=== PATIENT | female | born 1935 | race Caucasian/White ===

== ENCOUNTER 2016-12-16 08:05 | Observation (INO) ==
[2016-12-16] MEDS ORDERED: IOPAMIDOL 100 ML BOTTLE IV ONE (08:06)
[2016-12-16] MEDS ORDERED: NITROGLYCERIN 0.4 MG TAB.SUBL SL PRN (08:11)
[2016-12-16] MEDS ORDERED: ASPIRIN 81 MG TAB.CHEW CHEWED ONE (08:12)
[2016-12-16] MEDS ORDERED: PHENobarb/HYOSCY/ATROPINE/SCOP 1 DOSE BOTTLE PO ONE (08:27)
[2016-12-16 08:42] LABS: Basophils # (Auto) 0 K/mcL (0.0-0.3); Basophils % (Auto) 0.3 % (0.0-2.0); Eosinophils # (Auto) 0.1 K/mcL (0.0-0.7); Eosinophils % (Auto) 1.1 % (0.0-7.0); Granulocytes % (Auto) 84.3 % (38.0-78.0); Lymphocytes # (Auto) 0.6 K/mcL (1.5-4.8); Mean Cell Volume 92.8 fL (80.0-100.0); Mean Corpuscular Hemoglobin 31.5 pg (26.0-34.0); Monocytes # (Auto) 0.6 K/mcL (0.1-0.9); Monocytes % (Auto) 7.3 % (1.0-12.0); Platelet Count 205 K/mcL (140-440); RBC 3.43 M/mcL (4.00-5.20); Red Cell Distribution Width 14.5 % (11.5-14.5)
--- NOTE | 2016-12-16 08:51 | XRay Report ---
HISTORY: Reason for Exam:Chest Pain FINDINGS: The lungs are clear and well expanded. There is no congestive heart failure or pleural effusion. The heart size is normal. There is a well-positioned dual-chamber pacemaker. The patient has a couple old healed posterior right-sided rib fractures. The right acromioclavicular joint is widened. IMPRESSION: No evidence of pneumonia or congestive heart failure Interpreted and Authenticated by: Yobani Leon 12/16/16
[2016-12-16 08:57] LABS: Amylase 69 U/L (28-100); Lipase 45 U/L (7-60)
--- NOTE | 2016-12-16 08:57 | Emergency Department Note ---
SOB HPI - General Chief Complaint: Shortness of Breath/Dyspnea Stated Complaint: Shortness of breath. Cough, Swelling to legs Source: patient Mode of arrival: wheelchair Limitations: no limitations - History of Present Illness Patient presents with , ongoing concern for shortness of breath with upper abdominal discomfort. Patient states that she does not feel well, generally weak. Persistent epigastric pain, gnawing. States it feels like she has an ulcer. Notes in the setting of copious loose stool dark and black, tarry by her report. Recently admitted after [facility] for intercranial bleeding on and coagulation to [facility]. Spent several days at [facility], relates much of the care. States that she had a cough that well until the last day that was unaddressed, eventually diagnosed with pneumonia. Patient has completed a course of antibiotics, not sure which one. Patient's cough has been less productive and improving and less labored breathing. No fevers or chills, no urinary symptoms. Crampy abdominal pain in addition to the epigastric pain which is constant. No emesis. Patient otherwise denies chest heaviness, jaw and neck shoulder or back pain. She denies near-syncope or diaphoresis. No history of cardiac disease. - Related Data Home Medications Medication Instructions Recorded Confirmed traMADol [Ultram] 50 mg PO BID PRN tab 10/03/15 10/13/16 Methotrexate Sodium [Methotrexate] 25 mg IJ 11/26/16 12/03/16 Vit A,C & E/Lutein/Minerals 11/26/16 12/03/16 [Ocuvite] Warfarin [Coumadin] 2 mg PO DAILY 11/26/16 12/03/16 amlodipine 5 mg tablet 5 mg PO QDAY 12/03/16 12/03/16 carvedilol 12.5 mg tablet 12.5 mg PO BID 12/03/16 12/03/16 fluticasone 50 mcg/actuation nasal 100 mcg INTRANASAL QDAY PRN 12/03/16 12/03/16 spray,suspension Previous Rx's Medication Instructions Recorded cyanocobalamin (vit B-12) 1,000 1,000 mcg PO QDAY #1 tab 04/09/15 mcg tablet INR machine #1 each 09/27/15 simvastatin 10 mg tablet 10 mg PO QPM #90 tab 12/18/15 folic acid 1 mg tablet 3 mg PO QDAY #270 tab 05/12/16 Acetaminophen W/Codeine #3 1 tab PO Q4-6HP PRN #15 tab 11/26/16 [Tylenol #3] Albuterol Sulfate [Proventil Hfa] 6.7 gm IH Q4HP PRN #1 hfa.aer.ad 11/26/16 losartan 100 mg tablet 50 mg PO QDAY #1 tab 12/03/16 prednisone 20 mg tablet 20 mg PO QDAY #5 tab 12/03/16 furosemide 20 mg tablet 20 mg PO QDAY #90 tab 12/04/16 potassium chloride ER 10 mEq 10 meq PO QDAY #90 cap 12/04/16 capsule,extended release Allergies Allergy/AdvReac Type Severity Reaction Status Date / Time hydrocodone [HYDROCODONE] AdvReac Unknown Anxiety Verified 12/16/16 08:10 Oxycodone AdvReac Anxiety Verified 12/16/16 08:10 Review of Systems All systems ED: reviewed and negative except as stated. Constitutional: Denies: fever, chills Cardiovascular: Denies: chest pain, palpitations Respiratory: Reports: cough, shortness of breath. Denies: phlegm, wheezes Gastrointestinal: Reports: abdominal pain, diarrhea. Denies: nausea Genitourinary: Denies: urgency Past Medical History - Past Medical History Attestation: Yes: The following information was validated with the patient. 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 Denies: cancer, myocardial infarction Surgical history ED: Reports: appendectomy, cataract, hysterectomy, orthopedic, other (Amputation left second toe, rotator cuff, bilateral feet), tonsillectomy Psychiatric history: Reports: anxiety. Denies: depression Family history: Reports: non-contributory - Social History smoking status: Former smoker Alcohol use: Reports: Occasionally, Recent Drug use: Reports: none Physical Exam - General Limitations: no limitations General appearance: alert, anxious, other (Slightly slowed mentation,defers history points to ) - Head Head exam: atraumatic, normocephalic - Eye Eye exam: Present: normal appearance, PERRL - ENT ENT exam: normal exam, mucous membranes moist - Neck Neck exam: Present: normal inspection. Absent: lymphadenopathy - Chest Chest inspection: Present: normal inspection, other (pacemaker) - Respiratory Respiratory exam: Present: normal lung sounds bilaterally. Absent: respiratory distress, wheezes, accessory muscle use - Cardiovascular Cardiovascular exam: Present: regular rate, normal rhythm - Abdominal Exam Abdominal exam: Present: soft, tenderness. Absent: distention, guarding, rebound, rigidity - Extremities Exam Extremities exam: Present: normal inspection - Back Exam Back exam: Present: normal inspection - Neurological Exam Neurological exam: Present: alert, oriented X3 - Psychiatric Psychiatric exam: Present: normal affect, flat affect - Skin Skin exam: Present: warm, dry Course Vital Signs Temperature 97.0 F 12/16/16 08:06 Pulse Rate 81 12/16/16 08:06 Respiratory Rate 18 12/16/16 08:06 Pulse Oximetry (%) 100 12/16/16 08:06 Temperature 97.0 F 12/16/16 08:06 Pulse Rate 75 12/16/16 08:31 Respiratory Rate 24 H 12/16/16 08:31 Blood Pressure 106/72 12/16/16 08:31 Pulse Oximetry (%) 100 12/16/16 08:31 Shortness of Breath/Dyspnea - Lab Data Lab results reviewed: Yes I reviewed the patient's lab results. Result diagrams: 12/16/16 08:20 12/16/16 08:20 Lab Results 12/16/16 12/16/16 Range/Units 08:20 08:21 WBC 8.7 (4.5-11.0) K/mcL RBC 3.43 L (4.00-5.20) M/mcL Hgb 10.8 L (12.0-15.0) g/dL Hct 31.8 L (36.0-48.0) % MCV 92.8 (80.0-100.0) fL MCH 31.5 (26.0-34.0) pg MCHC 34.0 (31.0-36.0) g/dL RDW 14.5 (11.5-14.5) % Plt Count 205 (140-440) K/mcL MPV 8.7 (7.4-10.4) fL Gran % 84.3 H (38.0-78.0) % Lymph % (Auto) 7.0 L (15.5-49.0) % [place] % (Auto) 7.3 (1.0-12.0) % Eos % (Auto) 1.1 (0.0-7.0) % Baso % (Auto) 0.3 (0.0-2.0) % Gran # 7.3 (1.8-8.0) K/mcL Lymph # (Auto) 0.6 L (1.5-4.8) K/mcL [place] # (Auto) 0.6 (0.1-0.9) K/mcL Eos # (Auto) 0.1 (0.0-0.7) K/mcL Baso # (Auto) 0 (0.0-0.3) K/mcL PT 24.7 H (11.9-14.5) sec INR 2.1 H (0.9-1.1) - Radiology Data Radiology results reviewed: Yes I reviewed the patient's radiology results. no acute finding, over read pending Disposition Pt seen by CERAMIC MOLD DESIGNER/PA only: No Clinical Impression: Epigastric pain, Weakness, Melena Summary: initial workup including cardiac enzymes pending; patient transitioning to Dr. Aparicio, see his separate note for interpretation of labs and final diagnosis and disposition Referrals: Anand Rico MD [Primary Care Provider] -
[2016-12-16 09:13] LABS: Creatine Kinase MB 4.3 ng/ml (0-2.9); Myoglobin 37 ng/ml (25-58)
[2016-12-16 09:24] LABS: ALT/SGPT 62 U/l (0-40); Albumin 2.6 gm/dL (3.2-5.2); Alkaline Phosphatase 608 U/L (39-117); Blood Urea Nitrogen 20 mg/dl (8-23); Creatine Kinase 43 IU/L (24-170)
[2016-12-16] MEDS ORDERED: PANTOPRAZOLE 40 MG VIAL IV ONE ×2 (09:58→10:32)
[2016-12-16 10:28] LABS: Appearance,Urine HAZY; Bacteria,Urine MANY /hpf (0); Bilirubin,Urine NEG (NEG); Color,Urine YELLOW; Glucose,Urine (UA) NEGATIVE (NEG); Leukocyte Esterase,Urine 500 /uL (NEG); Mucus,Urine FEW /hpf (0); Nitrate,Urine NEG (NEG); Protein,Urine NEG (NEG); Specific Gravity,Urine 1.009 (1.000-1.035); Urine Blood 0.03 mg/dL (<0.03); Urine Hyaline Cast 1 /lpf (0-2); Urine RBC 5 /hpf (0-1); Urine Squamous Epithelial Cell < 1 /hpf (0-4); Urine WBC > 182 /hpf (0-4); Urobilinogen,Urine NEG (NEG)
[2016-12-16 11:02] LABS: C-Reactive Protein 11.9 mg/dl (0.0-0.8)
[2016-12-16] MEDS ORDERED: cefTRIAXone 1 GM in DEXTROSE 5% IN WATER 50 ML IV ONE (11:32)
--- NOTE | 2016-12-16 11:46 | Ultrasound Report ---
History: Abdominal pain with elevated liver enzymes Findings: The liver contains multiple complex cystic lesions. The have irregular contours and thickened deal. Largest measures 5.9 cm. There is involvement throughout both left and right lobe. The liver parenchyma itself is also very heterogeneous. These are new finding since a prior CT done on 09/14/08. Right lobe is 15.3 cm in length which is upper limits of normal. The pancreas is incompletely visualized but the visualized portion appears normal. The gallbladder is normal with no stones. There is a focal area of thickened gallbladder wall measuring up to 3.3 mm. The patient was nontender wall scanning over the gallbladder. The common bile duct is 5.8 mm in diameter which is within normal limits. No ascites is present in the upper abdomen. Impression: Multiple complex cystic masses throughout the liver. This could be due to necrotic tumors. Infection with multiple liver abscess is another consideration. Upper abdominal CT with IV contrast is recommended. Dr. Aparicio was called with the results Interpreted and Authenticated by: Yobani Leon 12/16/16
--- NOTE | 2016-12-16 12:35 | Emergency Department Note ---
SOB HPI - General Chief Complaint: Shortness of Breath/Dyspnea Stated Complaint: Shortness of breath. Cough, Swelling to legs Time Seen by Provider: 12/16/16 09:04 Source: patient Mode of arrival: wheelchair Limitations: no limitations - Related Data Home Medications Medication Instructions Recorded Confirmed traMADol [Ultram] 50 mg PO BID PRN tab 10/03/15 10/13/16 Methotrexate Sodium [Methotrexate] 25 mg IJ 11/26/16 12/03/16 Vit A,C & E/Lutein/Minerals 11/26/16 12/03/16 [Ocuvite] Warfarin [Coumadin] 2 mg PO DAILY 11/26/16 12/03/16 amlodipine 5 mg tablet 5 mg PO QDAY 12/03/16 12/03/16 carvedilol 12.5 mg tablet 12.5 mg PO BID 12/03/16 12/03/16 fluticasone 50 mcg/actuation nasal 100 mcg INTRANASAL QDAY PRN 12/03/16 12/03/16 spray,suspension Previous Rx's Medication Instructions Recorded cyanocobalamin (vit B-12) 1,000 1,000 mcg PO QDAY #1 tab 04/09/15 mcg tablet INR machine #1 each 09/27/15 simvastatin 10 mg tablet 10 mg PO QPM #90 tab 12/18/15 folic acid 1 mg tablet 3 mg PO QDAY #270 tab 05/12/16 Acetaminophen W/Codeine #3 1 tab PO Q4-6HP PRN #15 tab 11/26/16 [Tylenol #3] Albuterol Sulfate [Proventil Hfa] 6.7 gm IH Q4HP PRN #1 hfa.aer.ad 11/26/16 losartan 100 mg tablet 50 mg PO QDAY #1 tab 12/03/16 prednisone 20 mg tablet 20 mg PO QDAY #5 tab 12/03/16 furosemide 20 mg tablet 20 mg PO QDAY #90 tab 12/04/16 potassium chloride ER 10 mEq 10 meq PO QDAY #90 cap 12/04/16 capsule,extended release Allergies Allergy/AdvReac Type Severity Reaction Status Date / Time hydrocodone [HYDROCODONE] AdvReac Unknown Anxiety Verified 12/16/16 08:10 Oxycodone AdvReac Anxiety Verified 12/16/16 08:10 Review of Systems Constitutional: Denies: fever, chills Cardiovascular: Denies: chest pain, palpitations Respiratory: Reports: cough, shortness of breath. Denies: phlegm, wheezes Gastrointestinal: Reports: abdominal pain, diarrhea. Denies: nausea Genitourinary: Denies: urgency Past Medical History - Past Medical History Medical history: Reports: arthritis (Rheumatoid and osteo-), CVA (Intracranial bleed related to blood thinners.), DVT, diabetes, hyperlipidemia, hypertension, osteoporosis, other (Schatzki's ring, peptic ulcer disease; PACER; chronic Coumadin therapy for recurrent VTE). Denies: cancer, myocardial infarction Surgical history ED: Reports: appendectomy, cataract, hysterectomy, orthopedic, other (Amputation left second toe, rotator cuff, bilateral feet), tonsillectomy Psychiatric history: Reports: anxiety. Denies: depression - Social History smoking status: Former smoker Alcohol use: Reports: Occasionally, Recent Drug use: Reports: none Physical Exam - General Limitations: no limitations General appearance: alert, anxious, other (Slightly slowed mentation,defers history points to ) Course Vital Signs Temperature 97.0 F 12/16/16 08:06 Pulse Rate 81 12/16/16 08:06 Respiratory Rate 18 12/16/16 08:06 Pulse Oximetry (%) 100 12/16/16 08:06 Temperature 100.0 F H 12/16/16 12:26 Pulse Rate 69 12/16/16 12:01 Respiratory Rate 12 12/16/16 12:26 Blood Pressure 105/80 12/16/16 12:26 Pulse Oximetry (%) 95 12/16/16 12:01 Shortness of Breath/Dyspnea - MDM Narrative Medical decision making narrative: Please see history and physical as noted by Dr. Guzman. Patient reviewed and patient seen in the department. It turns out her alkaline phosphatase was markedly elevated and we ordered an ultrasound, showing several cystic lesions in the liver. Her alkaline phosphatase was over 600 and was normal this summer in August. At this point she also has a urinary tract infection, she has associated weakness, she is also immunosuppressed as she is on prednisone for her rheumatoid disease. 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 I discussed hospital admission with Dr. Robertson, we will admit to the hospital at this point for further management and evaluation. - Lab Data Result diagrams: 12/16/16 08:20 12/16/16 08:20 Lab Results 12/16/16 12/16/16 12/16/16 Range/Units 08:20 08:20 08:20 WBC 8.7 (4.5-11.0) K/mcL RBC 3.43 L (4.00-5.20) M/mcL Hgb 10.8 L (12.0-15.0) g/dL Hct 31.8 L (36.0-48.0) % MCV 92.8 (80.0-100.0) fL MCH 31.5 (26.0-34.0) pg MCHC 34.0 (31.0-36.0) g/dL RDW 14.5 (11.5-14.5) % Plt Count 205 (140-440) K/mcL MPV 8.7 (7.4-10.4) fL Gran % 84.3 H (38.0-78.0) % Lymph % (Auto) 7.0 L (15.5-49.0) % [place] % (Auto) 7.3 (1.0-12.0) % Eos % (Auto) 1.1 (0.0-7.0) % Baso % (Auto) 0.3 (0.0-2.0) % Gran # 7.3 (1.8-8.0) K/mcL Lymph # (Auto) 0.6 L (1.5-4.8) K/mcL [place] # (Auto) 0.6 (0.1-0.9) K/mcL Eos # (Auto) 0.1 (0.0-0.7) K/mcL Baso # (Auto) 0 (0.0-0.3) K/mcL PT (11.9-14.5) sec INR (0.9-1.1) Sodium 131 L (133-145) mmol/L Potassium 4.0 (3.3-5.1) mmol/L Chloride 93 L (96-108) mmol/L Carbon Dioxide 20 L (22-30) mmol/L Anion Gap 18.0 H (8-16) BUN 20 (8-23) mg/dl Creatinine 1.0 (0.6-1.1) mg/dl GFR Calculation 54 Glucose 145 H (70-105) mg/dL Calcium 8.8 (8.6-10.4) mg/dl Total Bilirubin 0.6 (0.0-1.0) mg/dL AST 124 H (0-37) U/l ALT 62 H (0-40) U/l Alkaline Phosphatase 608 H (39-117) U/L Total Creatine Kinase 43 (24-170) IU/L CK-MB (CK-2) 4.3 H (0-2.9) ng/ml Myoglobin 37 (25-58) ng/ml Troponin T 0.02 (0-0.03) ng/ml C-Reactive Protein (0.0-0.8) mg/dl NT-Pro-B Natriuret Pep (0-450) pg/ml Total Protein 5.1 L (5.9-8.4) gm/dL Albumin 2.6 L (3.2-5.2) gm/dL Globulin 2.5 (2.2-3.7) gm/dL Albumin/Globulin Ratio 1.0 (1.0-2.3) Amylase (28-100) U/L Lipase (7-60) U/L Urine Color Urine Appearance Urine pH (5.0-9.0) Ur Specific [place] (1.000-1.035) Urine Protein (NEG) mg/dL Urine Glucose (UA) (NEG) mg/dL Urine Ketones (NEG) mg/dL Urine Occult Blood (<0.03) mg/dL Urine Nitrate (NEG) Urine Bilirubin (NEG) mg/dL Urine Urobilinogen (NEG) mg/dL Ur Leukocyte Esterase (NEG) /uL Urine RBC (0-1) /hpf Urine WBC (0-4) /hpf Ur Squamous Epith Cells (0-4) /hpf Urine Bacteria (0) /hpf Hyaline Casts (0-2) /lpf Urine Mucus (0) /hpf 12/16/16 12/16/16 12/16/16 Range/Units 08:20 08:20 08:21 WBC (4.5-11.0) K/mcL RBC (4.00-5.20) M/mcL Hgb (12.0-15.0) g/dL Hct (36.0-48.0) % MCV (80.0-100.0) fL MCH (26.0-34.0) pg MCHC (31.0-36.0) g/dL RDW (11.5-14.5) % Plt Count (140-440) K/mcL MPV (7.4-10.4) fL Gran % (38.0-78.0) % Lymph % (Auto) (15.5-49.0) % [place] % (Auto) (1.0-12.0) % Eos % (Auto) (0.0-7.0) % Baso % (Auto) (0.0-2.0) % Gran # (1.8-8.0) K/mcL Lymph # (Auto) (1.5-4.8) K/mcL [place] # (Auto) (0.1-0.9) K/mcL Eos # (Auto) (0.0-0.7) K/mcL Baso # (Auto) (0.0-0.3) K/mcL PT 24.7 H (11.9-14.5) sec INR 2.1 H (0.9-1.1) Sodium (133-145) mmol/L Potassium (3.3-5.1) mmol/L Chloride (96-108) mmol/L Carbon Dioxide (22-30) mmol/L Anion Gap (8-16) BUN (8-23) mg/dl Creatinine (0.6-1.1) mg/dl GFR Calculation Glucose (70-105) mg/dL Calcium (8.6-10.4) mg/dl Total Bilirubin (0.0-1.0) mg/dL AST (0-37) U/l ALT (0-40) U/l Alkaline Phosphatase (39-117) U/L Total Creatine Kinase (24-170) IU/L CK-MB (CK-2) (0-2.9) ng/ml Myoglobin (25-58) ng/ml Troponin T (0-0.03) ng/ml C-Reactive Protein 11.9 H (0.0-0.8) mg/dl NT-Pro-B Natriuret Pep 5525.0 H (0-450) pg/ml Total Protein (5.9-8.4) gm/dL Albumin (3.2-5.2) gm/dL Globulin (2.2-3.7) gm/dL Albumin/Globulin Ratio (1.0-2.3) Amylase 69 (28-100) U/L Lipase 45 (7-60) U/L Urine Color Urine Appearance Urine pH (5.0-9.0) Ur Specific [place] (1.000-1.035) Urine Protein (NEG) mg/dL Urine Glucose (UA) (NEG) mg/dL Urine Ketones (NEG) mg/dL Urine Occult Blood (<0.03) mg/dL Urine Nitrate (NEG) Urine Bilirubin (NEG) mg/dL Urine Urobilinogen (NEG) mg/dL Ur Leukocyte Esterase (NEG) /uL Urine RBC (0-1) /hpf Urine WBC (0-4) /hpf Ur Squamous Epith Cells (0-4) /hpf Urine Bacteria (0) /hpf Hyaline Casts (0-2) /lpf Urine Mucus (0) /hpf 12/16/16 Range/Units 09:47 WBC (4.5-11.0) K/mcL RBC (4.00-5.20) M/mcL Hgb (12.0-15.0) g/dL Hct (36.0-48.0) % MCV (80.0-100.0) fL MCH (26.0-34.0) pg MCHC (31.0-36.0) g/dL RDW (11.5-14.5) % Plt Count (140-440) K/mcL MPV (7.4-10.4) fL Gran % (38.0-78.0) % Lymph % (Auto) (15.5-49.0) % [place] % (Auto) (1.0-12.0) % Eos % (Auto) (0.0-7.0) % Baso % (Auto) (0.0-2.0) % Gran # (1.8-8.0) K/mcL Lymph # (Auto) (1.5-4.8) K/mcL [place] # (Auto) (0.1-0.9) K/mcL Eos # (Auto) (0.0-0.7) K/mcL Baso # (Auto) (0.0-0.3) K/mcL PT (11.9-14.5) sec INR (0.9-1.1) Sodium (133-145) mmol/L Potassium (3.3-5.1) mmol/L Chloride (96-108) mmol/L Carbon Dioxide (22-30) mmol/L Anion Gap (8-16) BUN (8-23) mg/dl Creatinine (0.6-1.1) mg/dl GFR Calculation Glucose (70-105) mg/dL Calcium (8.6-10.4) mg/dl Total Bilirubin (0.0-1.0) mg/dL AST (0-37) U/l ALT (0-40) U/l Alkaline Phosphatase (39-117) U/L Total Creatine Kinase (24-170) IU/L CK-MB (CK-2) (0-2.9) ng/ml Myoglobin (25-58) ng/ml Troponin T (0-0.03) ng/ml C-Reactive Protein (0.0-0.8) mg/dl NT-Pro-B Natriuret Pep (0-450) pg/ml Total Protein (5.9-8.4) gm/dL Albumin (3.2-5.2) gm/dL Globulin (2.2-3.7) gm/dL Albumin/Globulin Ratio (1.0-2.3) Amylase (28-100) U/L Lipase (7-60) U/L Urine Color Yellow Urine Appearance Hazy Urine pH 6.0 (5.0-9.0) Ur Specific [place] 1.009 (1.000-1.035) Urine Protein Neg (NEG) mg/dL Urine Glucose (UA) Negative (NEG) mg/dL Urine Ketones Neg (NEG) mg/dL Urine Occult Blood 0.03 A (<0.03) mg/dL Urine Nitrate Neg (NEG) Urine Bilirubin Neg (NEG) mg/dL Urine Urobilinogen Neg (NEG) mg/dL Ur Leukocyte Esterase 500 A (NEG) /uL Urine RBC 5 H (0-1) /hpf Urine WBC > 182 H (0-4) /hpf Ur Squamous Epith Cells < 1 (0-4) /hpf Urine Bacteria Many A (0) /hpf Hyaline Casts 1 (0-2) /lpf Urine Mucus Few (0) /hpf Disposition Pt seen by BOX OFFICE CLERK/PA only: No Clinical Impression: Epigastric pain, Weakness, Melena Disposition: Xfer Acute Care Hospital Condition: Fair Referrals: Anand Rico MD [Primary Care Provider] -
--- NOTE | 2016-12-16 16:15 | Cat Scan Report ---
CLINICAL INFORMATION: Reason for Exam:liver masses, abscess vs tumor COMPARISON: Ultrasound on 12/16/16 TECHNIQUE: Following injection of intravenous contrast the patient was scanned during the portal venous phase and at five minutes, from the diaphragm through the symphysis pubis. Sagittal and coronal reformats were created.. FINDINGS: There are numerous low-attenuation cystic lesions scattered throughout the liver. They have irregular borders. The largest is in the medial segment left lobe and measures 8 cm. Some of these cystic lesions have thickened deal. There is mild hepatomegaly. Trace amount of ascites is seen lateral to the right lobe.. The spleen is normal in size. There is a 1.5 cm accessory spleen in the hilar region. The gallbladder and pancreas are normal. There is a large heterogeneous tumor located centrally in the left kidney extends through the capsule into the perirenal fat laterally and into the renal sinus centrally. It measures 4.7 x 5.0 x 7.6 cm. There is no invasion of the left renal vein. However, there are enlarged metastatic lymph nodes in the retroperitoneum along the left side of the aorta. The measure up to 3.4 cm. Within the center of this renal tumor there is a coarse macrocalcification which measures 6 mm. No hydronephrosis is present. The tumor may be extending into the renal pelvis. The ureter is decompressed. The right kidney is normal without evidence of a mass or calculus. Oral contrast has through normal small intestine and colon without obstruction. There is diverticulosis of the descending and sigmoid colon but without evidence of acute diverticulitis. The appendix, uterus and ovaries are been removed.. There is a mass in the right ischiorectal fossa, just below the levator ani muscle and lateral to the rectum. Measures 2.1 x 2.8 cm. Bone windows show no lytic or blastic metastasis. Urinary bladder is unopacified but appears normal. There are degenerative changes in the lumbar spine. Grade 1 spondylolisthesis is present at L4-5 and L5-S1. 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 Waggoner was called with results Interpreted and Authenticated by: Yobani Leon 12/16/16
[2016-12-16] MEDS ORDERED: DEXTROSE 31 GM ORAL.SUSP PO PRN (17:12)
[2016-12-16] MEDS ORDERED: DEXTROSE 50% 50 ML VIAL IV PRN (17:12)
[2016-12-16] MEDS ORDERED: IPRATROPIUM/ALBUTEROL 3 ML AMPUL.NEB NEB PRN (17:12)
[2016-12-16] MEDS ORDERED: ALBUTEROL SULFATE 1 PUFF INHALER IH PRN (17:12)
[2016-12-16] MEDS ORDERED: AMPICILLIN SODIUM 2 GM VIAL IV SCH (17:12)
[2016-12-16] MEDS ORDERED: ONDANSETRON 4 MG/2 ML VIAL IV PRN (17:12)
[2016-12-16] MEDS ORDERED: PROMETHAZINE 25 MG/ML VIAL IV PRN (17:12)
[2016-12-16] MEDS ORDERED: FLUTICASONE PROPIONATE SPRAY.NAS NS PRN (17:12)
[2016-12-16] MEDS ORDERED: WARFARIN 1 MG TABLET PO ONE ×2 (17:12→19:00)
[2016-12-16] MEDS ORDERED: ZOLPIDEM 5 MG TABLET PO PRN (17:12)
[2016-12-16] MEDS ORDERED: ACETAMINOPHEN 325 MG TABLET PO PRN (17:12)
[2016-12-16] MEDS: HYDROmorphone 2 MG/ML SYRINGE IV PRN ×2 (17:43→21:49)
[2016-12-16] MEDS ORDERED: AMPICILLIN SODIUM 2 GM in 0.9 % SODIUM CHLORIDE 100 ML IV SCH (18:00)
--- NOTE | 2016-12-16 18:44 | Internal Med History&Physical ---
Medical - H&P: HPI Patient information: Note initiated : 12/16/16 at 6:38 pm Service Date, if different from initiated Date: [] Patient: Billy Smallwood a 81 y/o F admitted on 12/16/16 for SOB, Cough, Swelling To Legs. Chief Complaint: [] History of present illness: Ms. 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 The patient noted that over the peroid of 3 weeks she has been getting progressively short of breath. The patient notes that going up and down the stairs is getting difficult for her She admits to having increased frequency of urination, urinary incontinence and somewhat burning urine. The patient had been in the er x 3 over the last 2-3 weeks for evaluation but was sent home She also was having diffuse upper abdominal pain, sharp in nature, worse with eating food, some nausea, no vomiting. This time her workup showed that she has abnl ua and a worsening lft since august this year. 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 All systems: reviewed and no additional remarkable complaints except as stated ( as per HPI) Medical - H&P: PMH Medical history: Medical History (Last Reviewed 12/03/16 @ 14:39 by Anand Rico MD) Influenza A (Acute) Reactive airway disease that is not asthma (Acute) Post-influenza syndrome (Acute) Epigastric pain (Acute) Weakness (Acute) Melena (Acute) Influenza A (Acute) Cough (Chronic) Encounter for medication review (Chronic) Pacemaker (Chronic) Syncope (Acute) Orthostatic hypotension (Acute) Bradycardia (Acute) Intracerebral hematoma (Acute) Lipoma of abdominal wall (Chronic) Edema (Chronic) Gastric ulcer (Chronic) Anticoagulated with warfarin (Chronic) Greater trochanteric bursitis of left hip (Chronic) Hypercoagulable state (Chronic) Anticoagulated on Coumadin (Chronic) Thrombus (Chronic) History of tobacco use (Resolved) Positional vertigo (Resolved 07/08/12) Ventricular septal defect (Chronic) Schatzki's ring (Chronic) Rotator cuff syndrome (Chronic) Rheumatoid arthritis (Chronic) Retinal detachment (Chronic) RAD (reactive airway disease) (Chronic 04/08/13) Phlebitis and thrombophlebitis of superficial vessels of lower extremities ( Resolved) PVD (peripheral vascular disease) (Chronic) Osteopenia (Chronic) Osteoarthrosis (Chronic) Osteoarthritis (Chronic) Nodule of right lung (Chronic) Medial epicondylitis (Resolved 10/07/12) 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) Joint pain (Chronic) Hypertension, essential (Chronic) Hyperlipidemia (Chronic) Hormone replacement therapy (HRT) (Chronic) Herpes zoster (Resolved) Diverticulitis of colon (Resolved 05/30/14) Depression (Chronic) 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) Acquired ankle/foot deformity (Chronic) Bradycardia (Chronic) Anxiety (Chronic) Anemia (Chronic) Allergy (Chronic 07/08/12) Sinusitis (Chronic 04/08/13) Surgical history: Past Surgical History (Last Reviewed 12/03/16 @ 14:39 by Anand Rico MD) Hx of tonsillectomy (Resolved) H/O bilateral salpingo-oophorectomy (Resolved) H/O rotator cuff surgery (Resolved) H/O: hysterectomy (Resolved) H/O foot surgery (Resolved) H/O eye surgery (Resolved 06/30/11) Hx of esophagogastroduodenoscopy (Resolved 05/02/14) H/O colonoscopy (Resolved 07/15/13) H/O bilateral cataract extraction (Resolved) Hx of appendectomy (Resolved) H/O amputation (Resolved) Pacemaker (Chronic) Pertinent family history: Family History (Last Reviewed 12/03/16 @ 14:39 by Anand Rico MD) Daughter Malignant neoplasm of colon Mother Dementia Father Cerebrovascular accident (CVA) Medical - H&P: Meds Home Medications Medication Instructions Recorded Confirmed Type cyanocobalamin (vit B-12) 1,000 1,000 mcg PO QDAY #1 tab 04/09/15 12/16/16 Rx mcg tablet traMADol [Ultram] 50 mg PO BID PRN tab 10/03/15 12/16/16 History simvastatin 10 mg tablet 10 mg PO QPM #90 tab 12/18/15 12/16/16 Rx folic acid 1 mg tablet 3 mg PO QDAY #270 tab 05/12/16 12/16/16 Rx Acetaminophen W/Codeine #3 1 tab PO Q4-6HP PRN #15 tab 11/26/16 12/16/16 Rx [Tylenol #3] Albuterol Sulfate [Proventil Hfa] 6.7 gm IH Q4HP PRN #1 hfa.aer.ad 11/26/16 Rx Methotrexate Sodium [Methotrexate] 25 mg IJ WEEKLY 11/26/16 12/16/16 History Vit A,C & E/Lutein/Minerals 1 each PO DAILY 11/26/16 12/16/16 History [Ocuvite] Warfarin [Coumadin] 2 mg PO DAILY 11/26/16 12/16/16 History amlodipine 5 mg tablet 5 mg PO QDAY 12/03/16 12/16/16 History carvedilol 12.5 mg tablet 12.5 mg PO BID 12/03/16 12/16/16 History fluticasone 50 mcg/actuation nasal 100 mcg INTRANASAL QDAY PRN 12/03/16 History spray,suspension losartan 100 mg tablet 50 mg PO QDAY #1 tab 12/03/16 12/16/16 Rx prednisone 20 mg tablet 20 mg PO QDAY #5 tab 12/03/16 12/16/16 Rx furosemide 20 mg tablet 20 mg PO QDAY #90 tab 12/04/16 12/16/16 Rx potassium chloride ER 10 mEq 10 meq PO QDAY #90 cap 12/04/16 12/16/16 Rx capsule,extended release INR machine 1 each .ROUTE DAILY 12/16/16 12/16/16 History Allergies Allergy/AdvReac Type Severity Reaction Status Date / Time hydrocodone [HYDROCODONE] AdvReac Mild Anxiety Verified 12/16/16 17:19 Oxycodone AdvReac Mild Anxiety Verified 12/16/16 17:19 Medical - H&P: Exam - Constitutional Vitals: Temp Pulse Resp BP Pulse Ox 97.5 F 72 16 121/75 98 12/16/16 17:54 12/16/16 16:31 12/16/16 17:54 12/16/16 17:54 12/16/16 17:54 Medical - H&P: Reslt - Labs CBC & Chem 7: 12/16/16 08:20 12/16/16 08:20 Labs: Short CBC 12/16/16 Range/Units 08:20 WBC 8.7 (4.5-11.0) K/mcL Hgb 10.8 L (12.0-15.0) g/dL Hct 31.8 L (36.0-48.0) % Plt Count 205 (140-440) K/mcL BMP 12/16/16 08:20 Sodium 131 L Potassium 4.0 Chloride 93 L Carbon Dioxide 20 L BUN 20 Creatinine 1.0 Glucose 145 H Calcium 8.8 Cardiac Enzymes 12/16/16 12/16/16 Range/Units 08:20 08:20 Total Creatine Kinase 43 (24-170) IU/L CK-MB (CK-2) 4.3 H (0-2.9) ng/ml Troponin T 0.02 (0-0.03) ng/ml Liver Function 12/16/16 Range/Units 08:20 Total Bilirubin 0.6 (0.0-1.0) mg/dL AST 124 H (0-37) U/l ALT 62 H (0-40) U/l Alkaline Phosphatase 608 H (39-117) U/L Albumin 2.6 L (3.2-5.2) gm/dL Urine 12/16/16 Range/Units 09:47 Urine Color Yellow Urine Appearance Hazy Urine pH 6.0 (5.0-9.0) Ur Specific Anthon 1.009 (1.000-1.035) Urine Protein Neg (NEG) mg/dL Urine Glucose (UA) Negative (NEG) mg/dL Medical - H&P: A/P - Narrative A/P Narrative: A/P Urinary tract infection Shortness of breath Hypercoagulable state Possible MEstatatic Renal Cell Cancer DM Rheumatoid arhtritis on steroid HTN HLD Plan Admit to observation status Previous urine cx is enterococcus sensitive to cipr. Start on cipro for now, rocephin would nto cover enterococus by itself Discussed case with Urology who noted he would reveiew the images and let me know if anything needs be done Likely will need oncology follow up closely Explained to the family regarding the possibility of malignancy and the possiblity of spread, the fact that she is high risk given her need for continued anticoagulation puts her at higher risk pt and her verbalized understanding some dark stools were mentioned but as per ER physician FOB was negative. Natali is on coumadin with therpaeutic INR, continue same The patients xray is normal, sob could be from a PE which developed when she was in the rehab facility given that she was off anticoagulation during that time. I do not feel that we need to verify this as she is on coumadin and management would not chagne. Will consider gentle diuresis if possible to see if this helps resume home meds as appropriate DVT on coumadin Full code CArdiac Diet. Social History - Social History household members: spouse housing: house lives independently: Yes marital status: occupational status: retired occupation: Cook other: Children-2 A daughter of colon cancer at 32 - Tobacco smoking status: Former smoker - Alcohol alcohol intake frequency: 0-2 drinks per day - Substance use substance use type: does not use
[2016-12-16] MEDS: SIMVASTATIN 10 MG TABLET PO SCH (20:48)
[2016-12-16] MEDS: CARVEDILOL 12.5 MG TABLET PO SCH (20:48)
[2016-12-16] MEDS: CIPROFLOXACIN 400 MG/200 ML BAG IV SCH (20:51)
[2016-12-16] MEDS: INSULIN LISPRO 1 UNIT/0.01 ML UNIT SQ SCH ×2 (21:28→22:05)
[2016-12-16] MEDS: 0.9 % SODIUM CHLORIDE 10 ML SYRINGE IV SCH (21:50)
[2016-12-17] MEDS: 0.9 % SODIUM CHLORIDE 10 ML SYRINGE IV SCH ×3 (06:06→22:30)
[2016-12-17] MEDS: INSULIN LISPRO 1 UNIT/0.01 ML UNIT SQ SCH ×4 (10:18→22:01)
[2016-12-17] MEDS: amLODIPine 5 MG TABLET PO SCH (10:27)
[2016-12-17] MEDS: CARVEDILOL 12.5 MG TABLET PO SCH ×2 (10:32→21:37)
[2016-12-17] MEDS: FUROSEMIDE 20 MG TABLET PO SCH (10:33)
[2016-12-17] MEDS: POTASSIUM CHLORIDE 10 MEQ TABLET PO SCH (10:33)
[2016-12-17] MEDS: VIT A,C & E/LUTEIN/MINERALS TABLET PO SCH (10:34)
[2016-12-17] MEDS: CYANOCOBALAMIN (VITAMIN B-12) 500 MCG TABLET PO SCH (10:34)
[2016-12-17] MEDS: LOSARTAN 50 MG TABLET PO SCH (10:35)
[2016-12-17] MEDS: FOLIC ACID 1 MG TABLET PO SCH (10:36)
[2016-12-17] MEDS: predniSONE 20 MG TABLET PO SCH (10:36)
[2016-12-17] MEDS: CIPROFLOXACIN 400 MG/200 ML BAG IV SCH ×2 (10:59→21:30)
[2016-12-17 11:03] LABS: ALT/SGPT 49 U/l (0-40); Albumin 2.3 gm/dL (3.2-5.2); Alkaline Phosphatase 529 U/L (39-117); Basophils # (Auto) 0 K/mcL (0.0-0.3); Basophils % (Auto) 0.3 % (0.0-2.0); Bilirubin,Direct 0.2 mg/dL (0.0-0.3); Blood Urea Nitrogen 17 mg/dl (8-23); Eosinophils # (Auto) 0.1 K/mcL (0.0-0.7); Eosinophils % (Auto) 1.6 % (0.0-7.0); Gamma Glutamyl Transpeptidase 661 U/L (5-36); Granulocytes % (Auto) 76.1 % (38.0-78.0); Lymphocytes # (Auto) 0.9 K/mcL (1.5-4.8); Lymphocytes % (Auto) 11.7 % (15.5-49.0); Magnesium 1.6 mg/dL (1.6-2.5); Mean Cell Volume 92.8 fL (80.0-100.0); Mean Corpuscular HGB Conc 33.6 g/dL (31.0-36.0); Mean Corpuscular Hemoglobin 31.1 pg (26.0-34.0); Monocytes # (Auto) 0.8 K/mcL (0.1-0.9); Monocytes % (Auto) 10.3 % (1.0-12.0); Platelet Count 202 K/mcL (140-440); RBC 3.13 M/mcL (4.00-5.20); Red Cell Distribution Width 14.8 % (11.5-14.5); Uric Acid 8.7 mg/dL (2.5-8.0)
--- NOTE | 2016-12-17 14:21 | Internal Med Progress Note ---
Medical - PN: Subj Patient information: Note initiated : 12/17/16 at 2:16 pm Service Date, if different from initiated Date: [] Patient: Billy Smallwood 81 y/o F admitted on 12/16/16 for SOB, Cough, Swelling To Legs/UTI. Chief Complaint: [] Interval history: Ms. 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 The patient noted that over the peroid of 3 weeks she has been getting progressively short of breath. The patient notes that going up and down the stairs is getting difficult for her She admits to having increased frequency of urination, urinary incontinence and somewhat burning urine. The patient had been in the er x 3 over the last 2-3 weeks for evaluation but was sent home She also was having diffuse upper abdominal pain, sharp in nature, worse with eating food, some nausea, no vomiting. This time her workup showed that she has abnl ua and a worsening lft since august this year. 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 Will transport the patient to the [facility] (pt to self transport ) patient is improving clinically and needs antibiotics for UTI. Pertinent ROS: Denies headache, dizziness Denies chest pain, palpitations Denies cough or shortness of breath improving abdominal pain, No nausea or vomiting. - Constitutional Vitals: Vital Signs Temp Pulse Resp BP Pulse Ox 98.2 F 69 12 125/72 96 12/17/16 07:53 12/17/16 07:53 12/17/16 07:53 12/17/16 07:53 12/17/16 07:53 Period Temp Pulse Resp BP Sys/Arias Pulse Ox Last 24 Hr 97.5 F-99.9 F 67-73 12-23 92-132/69-90 94-99 Intake and Output 12/17/16 12/17/16 12/17/16 05:59 13:59 21:59 Intake Total 175 / 175 Output Total 400 / 400 225 / 225 Balance -225 / -225 -225 / -225 Intake & Output: Intake & Output 12/17/16 12/17/16 12/17/16 05:59 13:59 21:59 Intake Total 175 / 175 Output Total 400 / 400 225 / 225 Balance -225 / -225 -225 / -225 Intake: Oral 175 / 175 Output: Void Amount 400 / 400 225 / 225 Other: Meal Soup, crackers Percent of Meal Consumed 100% Feeding Ability Independent # Voids 1 1 # Bowel Movements 1 1 # of times incontinent of 1 Bowels Exam: Constitutional; Afebrile, cooperative, alert, not in distress. Eyes- No icterus, , No periorbital swelling Ears- Ext ear normal, hearing normal to conversation. Neck- Midline trachea, supple Respiratory system: Air Entry equal on both sides, No crackles or wheezing, no rhonchi. CVS- Rate rhythm regular, S1,S2 heard, no gallop, no rub. Abdomen-mild epigastric tenderness , no organomegaly, no tenderness, no guarding or rigidity, ASSOCIATE APPLICATION DEVELOPER- AOOx3, moving all extremities, no gross focal deficit noted. Medical - PN: Obj Da - Labs CBC & Chem 7: 12/17/16 05:11 12/17/16 05:11 Labs: Abnormal Lab Results 12/17/16 12/17/16 12/17/16 05:11 05:11 05:11 RBC 3.13 L Hgb 9.7 L Hct 29.0 L RDW 14.8 H Gran % Lymph % (Auto) 11.7 L Lymph # (Auto) 0.9 L PT 31.5 H INR 2.9 H Sodium 128 L Chloride 94 L Carbon Dioxide Anion Gap Glucose Uric Acid 8.7 H Calcium 8.2 L GGT 661 H AST 107 H ALT 49 H Alkaline Phosphatase 529 H Lactate Dehydrogenase 627 H CK-MB (CK-2) C-Reactive Protein NT-Pro-B Natriuret Pep Total Protein 4.5 L Albumin 2.3 L Urine Occult Blood Ur Leukocyte Esterase Urine RBC Urine WBC Urine Bacteria 12/16/16 12/16/16 12/16/16 09:47 08:21 08:20 RBC Hgb Hct RDW Gran % Lymph % (Auto) Lymph # (Auto) PT 24.7 H INR 2.1 H Sodium Chloride Carbon Dioxide Anion Gap Glucose Uric Acid Calcium GGT AST ALT Alkaline Phosphatase Lactate Dehydrogenase CK-MB (CK-2) C-Reactive Protein 11.9 H NT-Pro-B Natriuret Pep 5525.0 H Total Protein Albumin Urine Occult Blood 0.03 A Ur Leukocyte Esterase 500 A Urine RBC 5 H Urine WBC > 182 H Urine Bacteria Many A 12/16/16 12/16/16 08:20 08:20 RBC 3.43 L Hgb 10.8 L Hct 31.8 L RDW Gran % 84.3 H Lymph % (Auto) 7.0 L Lymph # (Auto) 0.6 L PT INR Sodium 131 L Chloride 93 L Carbon Dioxide 20 L Anion Gap 18.0 H Glucose 145 H Uric Acid Calcium GGT AST 124 H ALT 62 H Alkaline Phosphatase 608 H Lactate Dehydrogenase CK-MB (CK-2) 4.3 H C-Reactive Protein NT-Pro-B Natriuret Pep Total Protein 5.1 L Albumin 2.6 L Urine Occult Blood Ur Leukocyte Esterase Urine RBC Urine WBC Urine Bacteria Meds: Medications Acetaminophen (Tylenol) 650 mg PO Q6HP PRN PRN Reason: PAIN/FEVER > 101 Albuterol Sulfate (Ventolin) 1 puff IH Q4HP PRN PRN Reason: Bronchospasm Albuterol/Ipratropium (Duoneb) 3 ml NEB Q4HRT PRN PRN Reason: Shortness Of Breath Or Wheezing Amlodipine Besylate (Norvasc) 5 mg PO QDAY [facility] Last Admin: 12/17/16 10:27 Dose: Not Given Carvedilol (Coreg) 12.5 mg PO BIDCC [facility] Last Admin: 12/17/16 10:32 Dose: Not Given Cyanocobalamin (Vitamin B-12) 1,000 mcg PO DAILY [facility] Last Admin: 12/17/16 10:34 Dose: 1,000 mcg Dextrose (Dextrose 50%) 0 ml IV UD PRN PRN Reason: Hypoglycemia Diagnostic Test (Pha) (Accu-Chek) 1 each FS ACHS [facility] Last Admin: 12/17/16 10:18 Dose: 1 each Fluticasone Propionate (Flonase) 1 spray NS DAILYP PRN PRN Reason: Congestion Folic Acid (Folic Acid) 3 mg PO QDAY [facility] Last Admin: 12/17/16 10:36 Dose: 3 mg Furosemide (Lasix) 20 mg PO QDAY [facility] Last Admin: 12/17/16 10:33 Dose: 20 mg Glucose (Insta-Glucose) 15 gm PO PRN PRN PRN Reason: Hypoglycemia Hydromorphone HCl (Dilaudid) 0.5 mg IV Q2HP PRN PRN Reason: Pain Last Admin: 12/16/16 17:43 Dose: 0.5 mg Ciprofloxacin (Cipro) 400 mg in 200 mls @ 200 mls/hr IV Q12H [facility] Last Admin: 12/17/16 10:59 Dose: 200 mls/hr Insulin Human Lispro (Humalog) 0 unit SQ [facility] PRN Reason: Protocol Last Admin: 12/17/16 10:18 Dose: Not Given Losartan Potassium (Cozaar) 50 mg PO DAILY [facility] Last Admin: 12/17/16 10:35 Dose: Not Given Multivitamins/Minerals (Ocuvite) 1 tab PO DAILY [facility] Last Admin: 12/17/16 10:34 Dose: 1 tab Ondansetron HCl (Zofran) 4 mg IV Q6HP PRN PRN Reason: Nausea And Vomiting Last Admin: 12/16/16 17:43 Dose: 4 mg Potassium Chloride (Kdur) 10 meq PO [facility] Last Admin: 12/17/16 10:33 Dose: 10 meq Prednisone (Prednisone) 20 mg PO [facility] Last Admin: 12/17/16 10:36 Dose: 20 mg Promethazine HCl (Phenergan) 12.5 mg IV Q6HP PRN PRN Reason: Nausea And Vomiting Last Admin: 12/16/16 21:50 Dose: 12.5 mg Simvastatin (Zocor) 10 mg PO QPM [facility] Last Admin: 12/16/16 20:48 Dose: 10 mg Sodium Chloride (Saline Flush) 10 ml IV Q8 [facility] Last Admin: 12/17/16 06:06 Dose: 10 ml Tramadol HCl (Ultram) 50 mg PO BIDP PRN PRN Reason: Pain Warfarin Sodium (Coumadin Per Pharmacy) 1 order PO UD JAIME Zolpidem Tartrate (Ambien) 5 mg PO HSP PRN PRN Reason: Insomnia Medical - PN: A/P - Time Spent With Patient Total time spent is greater than 50% in coordination of care (as documented) at patient's floor/unit and/or counseling patient: - Narrative A/P Narrative: A/P Urinary tract infection Shortness of breath Hypercoagulable state Possible MEstatatic Renal Cell Cancer DM Rheumatoid arhtritis on steroid HTN HLD Plan Patient clinically improving ON IV cipro, Gram neg bacillus this time in urine culture, monitor, change abx as per sensitivities discussed [facility] urology and oncology to see oncology in clinic today continue home meds, INR 2.9 this AM, continue rest of home meds anticipate home d/c with PT in AM barring any unforseen events. LIkely small pe accounting for sob vs UTi, already on anticoagulation DVT on coumadin DNR code status CArdiac Diet. > 60 mins spent in pt couselling and care coordination. Medical - PN: Qual - VTE Deep Vein Thrombosis/Pulmonary Embolism Present on Admission: No
[2016-12-17] MEDS: SIMVASTATIN 10 MG TABLET PO SCH (21:31)
[2016-12-18] MEDS: 0.9 % SODIUM CHLORIDE 10 ML SYRINGE IV SCH ×3 (05:21→21:49)
[2016-12-18] MEDS: traMADol 50 MG TABLET PO PRN (06:47)
[2016-12-18] MEDS: INSULIN LISPRO 1 UNIT/0.01 ML UNIT SQ SCH ×2 (06:50→10:58)
[2016-12-18 07:02] LABS: Basophils # (Auto) 0 K/mcL (0.0-0.3); Basophils % (Auto) 0.1 % (0.0-2.0); Eosinophils # (Auto) 0.2 K/mcL (0.0-0.7); Eosinophils % (Auto) 1.3 % (0.0-7.0); Granulocytes % (Auto) 85.6 % (38.0-78.0); Lymphocytes # (Auto) 1.1 K/mcL (1.5-4.8); Lymphocytes % (Auto) 8.2 % (15.5-49.0); Mean Cell Volume 92.8 fL (80.0-100.0); Mean Corpuscular HGB Conc 34.1 g/dL (31.0-36.0); Mean Corpuscular Hemoglobin 31.6 pg (26.0-34.0); Monocytes # (Auto) 0.6 K/mcL (0.1-0.9); Monocytes % (Auto) 4.8 % (1.0-12.0); Platelet Count 265 K/mcL (140-440); Red Cell Distribution Width 14.7 % (11.5-14.5)
[2016-12-18 07:47] LABS: ALT/SGPT 66 U/l (0-40); Albumin 2.4 gm/dL (3.2-5.2); Albumin/Globulin Ratio 0.9 (1.0-2.3); Alkaline Phosphatase 615 U/L (39-117); Bilirubin,Direct 0.2 mg/dL (0.0-0.3); Blood Urea Nitrogen 21 mg/dl (8-23); Gamma Glutamyl Transpeptidase 768 U/L (5-36); Magnesium 1.6 mg/dL (1.6-2.5); Uric Acid 9.3 mg/dL (2.5-8.0)
[2016-12-18] MEDS: FUROSEMIDE 20 MG TABLET PO SCH (08:15)
[2016-12-18] MEDS: CYANOCOBALAMIN (VITAMIN B-12) 500 MCG TABLET PO SCH (08:15)
[2016-12-18] MEDS: CARVEDILOL 12.5 MG TABLET PO SCH (08:15)
[2016-12-18] MEDS: VIT A,C & E/LUTEIN/MINERALS TABLET PO SCH (08:15)
[2016-12-18] MEDS: FOLIC ACID 1 MG TABLET PO SCH (08:15)
[2016-12-18] MEDS: CIPROFLOXACIN 400 MG/200 ML BAG IV SCH ×2 (08:16→20:55)
[2016-12-18] MEDS: amLODIPine 5 MG TABLET PO SCH (08:16)
[2016-12-18] MEDS: LOSARTAN 50 MG TABLET PO SCH (08:16)
[2016-12-18] MEDS: predniSONE 20 MG TABLET PO SCH (08:16)
[2016-12-18] MEDS: POTASSIUM CHLORIDE 10 MEQ TABLET PO SCH (08:16)
[2016-12-18] MEDS ORDERED: PHYTONADIONE 5 MG TABLET PO ONE (08:32)
--- NOTE | 2016-12-18 12:54 | Discharge Summary ---
Medical - DS: Prov Patient information: Note initiated : 12/18/16 at 12:37 pm Service Date, if different from initiated Date: [] Patient: Billy Smallwood 81 y/o F admitted on 12/16/16 for SOB, Cough, Swelling To Legs/UTI. Chief Complaint: [] Date of admission: 12/16/16 17:00 Discharge date: 12/18/16 Primary care physician: Anand Rico Admitting clinician: Madelyn Waggoner Consults: 12/16/16 12:29 Consult to Physician [CONS] Stat Comment: Consulting Provider: Madelyn Waggoner Reason For Exam: Physician to Consult Discharging clinician: Madelyn Waggoner Medical - DS: Meds - Discharge Medications Active and Home Medications: Home Medications cyanocobalamin (vit B-12) 1,000 mcg tablet 1,000 mcg PO QDAY #1 tab 04/09/15 [ Rx Confirmed 12/16/16 Last Taken 11/26/16] traMADol [Ultram] 50 mg PO BID PRN tab 10/03/15 [History Confirmed 12/16/16 Last Taken 11/12/16] simvastatin 10 mg tablet 10 mg PO QPM #90 tab 12/18/15 [Rx Confirmed 12/16/16 Last Taken 11/26/16] folic acid 1 mg tablet 3 mg PO QDAY #270 tab 05/12/16 [Rx Confirmed 12/16/16 Last Taken 11/26/16] Acetaminophen W/Codeine #3 [Tylenol #3] 1 tab PO Q4-6HP PRN #15 tab 11/26/16 [ Rx Confirmed 12/16/16 Last Taken Unknown] Albuterol Sulfate [Proventil Hfa] 6.7 gm IH Q4HP PRN #1 hfa.aer.ad 11/26/16 [Rx Confirmed 12/16/16 Last Taken Unknown] Methotrexate Sodium [Methotrexate] 25 mg IJ WEEKLY 11/26/16 [History Confirmed 12/16/16 Last Taken 11/25/16] Vit A,C & E/Lutein/Minerals [Ocuvite] 2 each PO DAILY 11/26/16 [History Confirmed 12/03/16 Last Taken 11/26/16] Warfarin [Coumadin] 2 mg PO DAILY 11/26/16 [History Confirmed 12/16/16 Last Taken 11/26/16] amlodipine 5 mg tablet 5 mg PO QDAY 12/03/16 [History Confirmed 12/16/16 Last Taken Unknown] carvedilol 12.5 mg tablet 12.5 mg PO BID 12/03/16 [History Confirmed 12/16/16 Last Taken Unknown] fluticasone 50 mcg/actuation nasal spray,suspension 100 mcg INTRANASAL QDAY PRN 12/03/16 [History Confirmed 12/16/16 Last Taken Unknown] losartan 100 mg tablet 50 mg PO QDAY #1 tab 12/03/16 [Rx Confirmed 12/16/16 Last Taken Unknown] prednisone 20 mg tablet 20 mg PO QDAY #5 tab 12/03/16 [Rx Confirmed 12/16/16 Last Taken Unknown] furosemide 20 mg tablet 20 mg PO QDAY #90 tab 12/04/16 [Rx Confirmed 12/16/16 Last Taken Unknown] potassium chloride ER 10 mEq capsule,extended release 10 meq PO QDAY #90 cap 02/08 [Rx Confirmed 12/16/16 Last Taken Unknown] INR machine 1 each .ROUTE DAILY 12/16/16 [History Confirmed 12/16/16 Last Taken Unknown] ALPRAZolam 0.5 mg PO HS PRN 12/17/16 [History Confirmed 12/17/16 Last Taken Unknown] Cefuroxime Axetil 500 mg PO BID 12/17/16 [History Confirmed 12/17/16 Last Taken Unknown] Dextromethorphan Polistirex 30 mg PO BID PRN 12/17/16 [History Confirmed Last Taken Unknown] Doxycycline Hyclate 100 mg PO QDAY 12/17/16 [History Confirmed 12/17/16 Last Taken Unknown] Flonase Allergy Relief 50 mcg INTRANASAL HS 12/17/16 [History Confirmed Last Taken Unknown] Melatonin 3 mg Tablet 3 mg PO HS PRN 12/17/16 [History Confirmed 12/17/16 Last Taken Unknown] Medical - DS: Hosp Hospital course: Mr. Smallwood is a 81 year old F - Time Spent with Patient Total time spent providing and/or coordinating discharge services: Medical - DS: Exam - Constitutional Vitals: Vital Signs Temp Pulse Pulse Pulse Resp BP BP 12/18/16 08:14 112/80 12/18/16 08:00 96.7 F L 14 95/68 12/18/16 07:30 70 12/18/16 04:00 97.8 F 62 14 150/84 12/18/16 00:00 98.0 F 69 16 130/82 12/17/16 20:00 97.7 F 68 16 116/70 12/17/16 14:00 124/72 Pulse Ox 12/18/16 08:14 12/18/16 08:00 96 12/18/16 07:30 97 12/18/16 04:00 98 12/18/16 00:00 97 12/17/16 20:00 96 12/17/16 14:00 Intake and Output 12/17/16 12/18/16 12/18/16 21:59 05:59 13:59 Intake Total 600 / 600 350 / 350 Output Total 150 / 150 103 / 103 Balance 450 / 450 247 / 247 Intake: IV 200 / 200 Oral 600 / 600 150 / 150 Output: Void Amount 150 / 150 100 / 100 # of times incontinent of urine 3 / 3 Other: Meal Dinner Breakfast Percent of Meal Consumed 100% 100% Feeding Ability Independent # Voids 1 1 1 # Bowel Movements 1 Weight 116 lb 120 lb Patient Weight 12/19/16 05:59 Weight 120 lb Medical - DS: Data Labs on day of discharge: Labs from last 24 hours 12/18/16 12/18/16 12/18/16 05:57 05:57 05:57 WBC 12.8 H RBC 3.60 L Hgb 11.4 L Hct 33.4 L MCV 92.8 MCH 31.6 MCHC 34.1 RDW 14.7 H Plt Count 265 MPV 8.7 Gran % 85.6 H Lymph % (Auto) 8.2 L [place] % (Auto) 4.8 Eos % (Auto) 1.3 Baso % (Auto) 0.1 Gran # 10.9 H Lymph # (Auto) 1.1 L [place] # (Auto) 0.6 Eos # (Auto) 0.2 Baso # (Auto) 0 PT 30.2 H INR 2.8 H Sodium 132 L Potassium 4.2 Chloride 93 L Carbon Dioxide 24 Anion Gap 15.0 BUN 21 Creatinine 1.1 GFR Calculation 48 Glucose 121 H Uric Acid 9.3 H Calcium 8.7 Phosphorus 3.0 Magnesium 1.6 Total Bilirubin 0.5 Direct Bilirubin 0.2 GGT 768 H AST 143 H ALT 66 H Alkaline Phosphatase 615 H Lactate Dehydrogenase 759 H Total Protein 5.1 L Albumin 2.4 L Globulin 2.7 Albumin/Globulin Ratio 0.9 L Triglycerides 116 Medical - DS: A/P - Patient/Caregiver Discharge Instructions Other Amb Orders: CT biopsy renal LT Location: Determined By Patient - Follow up Plan Follow up with: Anand Rico MD [Primary Care Provider] - Prognosis: Fair Medical - DS: Qual - VTE Deep Vein Thrombosis/Pulmonary Embolism Present on Admission: No
[2016-12-18] MEDS ORDERED: 0.9 % SODIUM CHLORIDE 1,000 ML IV ONE (13:00)
--- NOTE | 2016-12-18 13:30 | Internal Med Progress Note ---
Medical - PN: Subj Patient information: Note initiated : 12/18/16 at 1:24 pm Service Date, if different from initiated Date: [] Patient: Billy Smallwood 81 y/o F admitted on 12/16/16 for SOB, Cough, Swelling To Legs/UTI. Chief Complaint: [] Interval history: Ms. 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 The patient noted that over the peroid of 3 weeks she has been getting progressively short of breath. The patient notes that going up and down the stairs is getting difficult for her She admits to having increased frequency of urination, urinary incontinence and somewhat burning urine. The patient had been in the er x 3 over the last 2-3 weeks for evaluation but was sent home She also was having diffuse upper abdominal pain, sharp in nature, worse with eating food, some nausea, no vomiting. This time her workup showed that she has abnl ua and a worsening lft since august this year. 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 December 17 patient seen examined no acute overnight issue patient hsuband and son at bedside Urology reviewed scans, no surgical intervention possible Patient will need oncology eval, unfortunately we do not have oncology services , Dr Ivan who is dairy nutritionist by phone does not have privileges in the hospital, therefore could not see the patient in house patient is apprehensive about vermin exterminator prognosis and plan going forward I reviewed the case with Dr Ivan who graciously accepted to see the patient in her clinic today. Will transport the patient to the [facility] (pt to self transport ) patient is improving clinically and needs antibiotics for UTI. December 18 Patient seen examined no acute overnight issues she was supposed to get vit k last night in prep for an possible bx of renal mass in the near future, this was missed by myself. The patient otherwise had no complaints. he labs show slighly worsening wbc count, but clinically she seems better This AM she still had some pain in the mid abdomen, but not new and not worse since admission. She has no cp, sob, dizziness or any other complaints I reviewed with them the plan for going forward which would include a renal biopsy as discussed with Dr Ivan, the patient did not wish to stay in patient for the biopsy. I had explained to her the complexity of managing her anticoagulation in the cindy biopsy preroid but she decided to go home We were planning to set up the outpatient bx which is set up at [facility] on , however at the time of discharge she was noted to be hypotensive with bp systolic in 70-80 she remained asymptomatic, and denies any acute complaints THe patient is afebrile with normal HR, saturating 97 percent on room air, this AM likely had her lasix and coreg, stat blood cx, lactic acid, cbc, inpt panel, inr ordered. IV bolus 1L ordered and patient will be monitored inhouse etiology of hypotension? hypovolumeia? response to lasix? acute blood loss? worsening [id number],. pt clinically seems fairly stable. Will monitor closely , move to pcu if needed.she notes she wants to be full code, but not live on a machine as a vegetable. Pertinent ROS: Denies headache, dizziness Denies chest pain, palpitations Denies cough or shortness of breath Denies abdominal pain, nausea or vomiting. - Constitutional Vitals: Vital Signs Temp Pulse Resp BP Pulse Ox 97.8 F 69 14 108/70 97 12/18/16 13:13 12/18/16 13:13 12/18/16 13:13 12/18/16 13:13 12/18/16 13:13 Period Temp Pulse Resp BP Sys/Arias Pulse Ox Last 24 Hr 96.7 F-98.0 F 62-70 14-16 95-150/68-84 96-98 Intake and Output 12/17/16 12/18/16 12/18/16 21:59 05:59 13:59 Intake Total 600 / 600 350 / 350 Output Total 150 / 150 103 / 103 Balance 450 / 450 247 / 247 Weight 116 lb 120 lb Patient Weight 12/19/16 05:59 Weight 120 lb Intake & Output: Intake & Output 12/17/16 12/18/16 12/18/16 21:59 05:59 13:59 Intake Total 600 / 600 350 / 350 Output Total 150 / 150 103 / 103 Balance 450 / 450 247 / 247 Weight 116 lb 120 lb Intake: IV 200 / 200 Oral 600 / 600 150 / 150 Output: Void Amount 150 / 150 100 / 100 # of times incontinent of urine 3 / 3 Other: Meal Dinner Breakfast Percent of Meal Consumed 100% 100% Feeding Ability Independent # Voids 1 1 1 # Bowel Movements 1 Exam: Constitutional; Afebrile, cooperative, alert, not in distress. Eyes- No icterus, , No periorbital swelling Ears- Ext ear normal, hearing normal to conversation. Neck- Midline trachea, supple Respiratory system: Air Entry equal on both sides, No crackles or wheezing, no rhonchi. CVS- Rate rhythm regular, S1,S2 heard, no gallop, no rub. Abdomen- Soft abdomen, mild epigastric tenderness, hepatomegaly noted , no guarding or rigidity, COMPLIANCE INTERN- AOOx3, moving all extremities, no gross focal deficit noted. Medical - PN: Obj Da - Labs CBC & Chem 7: 12/18/16 05:57 12/18/16 05:57 Labs: Abnormal Lab Results 12/18/16 12/18/16 12/18/16 05:57 05:57 05:57 WBC 12.8 H RBC 3.60 L Hgb 11.4 L Hct 33.4 L RDW 14.7 H Gran % 85.6 H Lymph % (Auto) 8.2 L Gran # 10.9 H Lymph # (Auto) 1.1 L PT 30.2 H INR 2.8 H Sodium 132 L Chloride 93 L Carbon Dioxide Anion Gap Glucose 121 H Uric Acid 9.3 H Calcium GGT 768 H AST 143 H ALT 66 H Alkaline Phosphatase 615 H Lactate Dehydrogenase 759 H CK-MB (CK-2) C-Reactive Protein NT-Pro-B Natriuret Pep Total Protein 5.1 L Albumin 2.4 L Albumin/Globulin Ratio 0.9 L Urine Occult Blood Ur Leukocyte Esterase Urine RBC Urine WBC Urine Bacteria 12/17/16 12/17/16 12/17/16 05:11 05:11 05:11 WBC RBC 3.13 L Hgb 9.7 L Hct 29.0 L RDW 14.8 H Gran % Lymph % (Auto) 11.7 L Gran # Lymph # (Auto) 0.9 L PT 31.5 H INR 2.9 H Sodium 128 L Chloride 94 L Carbon Dioxide Anion Gap Glucose Uric Acid 8.7 H Calcium 8.2 L GGT 661 H AST 107 H ALT 49 H Alkaline Phosphatase 529 H Lactate Dehydrogenase 627 H CK-MB (CK-2) C-Reactive Protein NT-Pro-B Natriuret Pep Total Protein 4.5 L Albumin 2.3 L Albumin/Globulin Ratio Urine Occult Blood Ur Leukocyte Esterase Urine RBC Urine WBC Urine Bacteria 12/16/16 12/16/16 12/16/16 09:47 08:21 08:20 WBC RBC Hgb Hct RDW Gran % Lymph % (Auto) Gran # Lymph # (Auto) PT 24.7 H INR 2.1 H Sodium Chloride Carbon Dioxide Anion Gap Glucose Uric Acid Calcium GGT AST ALT Alkaline Phosphatase Lactate Dehydrogenase CK-MB (CK-2) C-Reactive Protein 11.9 H NT-Pro-B Natriuret Pep 5525.0 H Total Protein Albumin Albumin/Globulin Ratio Urine Occult Blood 0.03 A Ur Leukocyte Esterase 500 A Urine RBC 5 H Urine WBC > 182 H Urine Bacteria Many A 12/16/16 12/16/16 08:20 08:20 WBC RBC 3.43 L Hgb 10.8 L Hct 31.8 L RDW Gran % 84.3 H Lymph % (Auto) 7.0 L Gran # Lymph # (Auto) 0.6 L PT INR Sodium 131 L Chloride 93 L Carbon Dioxide 20 L Anion Gap 18.0 H Glucose 145 H Uric Acid Calcium GGT AST 124 H ALT 62 H Alkaline Phosphatase 608 H Lactate Dehydrogenase CK-MB (CK-2) 4.3 H C-Reactive Protein NT-Pro-B Natriuret Pep Total Protein 5.1 L Albumin 2.6 L Albumin/Globulin Ratio Urine Occult Blood Ur Leukocyte Esterase Urine RBC Urine WBC Urine Bacteria Meds: Medications Acetaminophen (Tylenol) 650 mg PO Q6HP PRN PRN Reason: PAIN/FEVER > 101 Albuterol Sulfate (Ventolin) 1 puff IH Q4HP PRN PRN Reason: Bronchospasm Albuterol/Ipratropium (Duoneb) 3 ml NEB Q4HRT PRN PRN Reason: Shortness Of Breath Or Wheezing Amlodipine Besylate (Norvasc) 5 mg PO QDAY [facility] Last Admin: 12/18/16 08:16 Dose: Not Given Carvedilol (Coreg) 12.5 mg PO BIDCC [facility] Last Admin: 12/18/16 08:15 Dose: 12.5 mg Cyanocobalamin (Vitamin B-12) 1,000 mcg PO DAILY [facility] Last Admin: 12/18/16 08:15 Dose: 1,000 mcg Dextrose (Dextrose 50%) 0 ml IV UD PRN PRN Reason: Hypoglycemia Diagnostic Test (Pha) (Accu-Chek) [address] [facility] Last Admin: 12/18/16 10:58 Dose: 1 each Fluticasone Propionate (Flonase) 1 spray NS DAILYP PRN PRN Reason: Congestion Folic Acid (Folic Acid) 3 mg PO QDAY [facility] Last Admin: 12/18/16 08:15 Dose: 3 mg Furosemide (Lasix) 20 mg PO QDAY [facility] Last Admin: 12/18/16 08:15 Dose: 20 mg Glucose (Insta-Glucose) 15 gm PO PRN PRN PRN Reason: Hypoglycemia Hydromorphone HCl (Dilaudid) 0.5 mg IV Q2HP PRN PRN Reason: Pain Last Admin: 12/16/16 17:43 Dose: 0.5 mg Ciprofloxacin (Cipro) 400 mg in 200 mls @ 200 mls/hr IV Q12H [facility] Last Admin: 12/18/16 08:16 Dose: 200 mls/hr Insulin Human Lispro (Humalog) 0 unit SQ [facility] PRN Reason: Protocol Last Admin: 12/18/16 10:58 Dose: Not Given Losartan Potassium (Cozaar) 50 mg PO DAILY [facility] Last Admin: 12/18/16 08:16 Dose: Not Given Multivitamins/Minerals (Ocuvite) 1 tab PO DAILY [facility] Last Admin: 12/18/16 08:15 Dose: 1 tab Ondansetron HCl (Zofran) 4 mg IV Q6HP PRN PRN Reason: Nausea And Vomiting Last Admin: 12/16/16 17:43 Dose: 4 mg Potassium Chloride (Kdur) 10 meq PO [facility] Last Admin: 12/18/16 08:16 Dose: 10 meq Prednisone (Prednisone) 20 mg PO [facility] Last Admin: 12/18/16 08:16 Dose: 20 mg Promethazine HCl (Phenergan) 12.5 mg IV Q6HP PRN PRN Reason: Nausea And Vomiting Last Admin: 12/16/16 21:50 Dose: 12.5 mg Simvastatin (Zocor) 10 mg PO QPM [facility] Last Admin: 12/17/16 21:31 Dose: 10 mg Sodium Chloride (Saline Flush) 10 ml IV Q8 [facility] Last Admin: 12/18/16 13:07 Dose: 10 ml Tramadol HCl (Ultram) 50 mg PO BIDP PRN PRN Reason: Pain Last Admin: 12/18/16 06:47 Dose: 50 mg Warfarin Sodium (Coumadin Per Pharmacy) 1 order PO UD JAIME Zolpidem Tartrate (Ambien) 5 mg PO HSP PRN PRN Reason: Insomnia Medical - PN: A/P - Time Spent With Patient Total time spent is greater than 50% in coordination of care (as documented) at patient's floor/unit and/or counseling patient: - Narrative A/P Narrative: A/P Urinary tract infection Shortness of breath Hypercoagulable state 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 continue same Given new hypotension workup for possible etiology, follow up labs. seen by oncology in yesterday, plan to get bx and follow up in clinic as outpatient. continue home meds, Hold lasix and bp meds for now in light of low bp INR 2.8, vit K given. DVT on coumadin, scd ordered full code > 60 mins spent in pt counselling and care coordination. Medical - PN: Qual - VTE Deep Vein Thrombosis/Pulmonary Embolism Present on Admission: No
[2016-12-18 14:22] LABS: Basophils # (Auto) 0 K/mcL (0.0-0.3); Basophils % (Auto) 0 % (0.0-2.0); Eosinophils # (Auto) 0.1 K/mcL (0.0-0.7); Eosinophils % (Auto) 0.7 % (0.0-7.0); Granulocytes % (Auto) 90.8 % (38.0-78.0); Lymphocytes # (Auto) 0.5 K/mcL (1.5-4.8); Lymphocytes % (Auto) 4.8 % (15.5-49.0); Mean Cell Volume 93.9 fL (80.0-100.0); Mean Corpuscular HGB Conc 33.3 g/dL (31.0-36.0); Mean Corpuscular Hemoglobin 31.3 pg (26.0-34.0); Monocytes # (Auto) 0.4 K/mcL (0.1-0.9); Monocytes % (Auto) 3.7 % (1.0-12.0); Platelet Count 202 K/mcL (140-440); RBC 3.15 M/mcL (4.00-5.20); Red Cell Distribution Width 14.4 % (11.5-14.5)
[2016-12-18 14:35] LABS: ALT/SGPT 65 U/l (0-40); Albumin 2.1 gm/dL (3.2-5.2); Albumin/Globulin Ratio 0.8 (1.0-2.3); Alkaline Phosphatase 564 U/L (39-117); Bilirubin,Direct < 0.2 mg/dL (0.0-0.3); Blood Urea Nitrogen 23 mg/dl (8-23); Gamma Glutamyl Transpeptidase 723 U/L (5-36); Magnesium 1.5 mg/dL (1.6-2.5); Uric Acid 8.8 mg/dL (2.5-8.0)
[2016-12-18] MEDS: 0.9 % SODIUM CHLORIDE 1,000 ML IV SCH (14:57)
[2016-12-18] MEDS ORDERED: MAGNESIUM SULFATE 2 GM/50 ML BAG IV ONE (17:30)
[2016-12-18] MEDS ORDERED: 0.9 % SODIUM CHLORIDE 500 ML IV ONE (19:24)
[2016-12-18] MEDS: SIMVASTATIN 10 MG TABLET PO SCH (20:55)
[2016-12-19] MEDS: 0.9 % SODIUM CHLORIDE 1,000 ML IV SCH (03:01)
[2016-12-19] MEDS: 0.9 % SODIUM CHLORIDE 10 ML SYRINGE IV SCH ×2 (05:21→13:06)
[2016-12-19 05:51] LABS: Basophils # (Auto) 0 K/mcL (0.0-0.3); Basophils % (Auto) 0.1 % (0.0-2.0); Eosinophils # (Auto) 0.1 K/mcL (0.0-0.7); Eosinophils % (Auto) 0.8 % (0.0-7.0); Granulocytes % (Auto) 86.9 % (38.0-78.0); Lymphocytes # (Auto) 0.8 K/mcL (1.5-4.8); Lymphocytes % (Auto) 7.4 % (15.5-49.0); Mean Cell Volume 93.6 fL (80.0-100.0); Mean Corpuscular HGB Conc 33.4 g/dL (31.0-36.0); Mean Corpuscular Hemoglobin 31.3 pg (26.0-34.0); Monocytes # (Auto) 0.5 K/mcL (0.1-0.9); Monocytes % (Auto) 4.8 % (1.0-12.0); Platelet Count 211 K/mcL (140-440); Red Cell Distribution Width 14.7 % (11.5-14.5)
[2016-12-19 06:11] LABS: ALT/SGPT 57 U/l (0-40); Albumin 2.2 gm/dL (3.2-5.2); Alkaline Phosphatase 512 U/L (39-117); Bilirubin,Direct < 0.2 mg/dL (0.0-0.3); Blood Urea Nitrogen 18 mg/dl (8-23); Gamma Glutamyl Transpeptidase 647 U/L (5-36)
[2016-12-19] MEDS ORDERED: cefTRIAXone 2 GM in DEXTROSE 5% IN WATER 50 ML IV ONE (07:00)
[2016-12-19] MEDS: predniSONE 20 MG TABLET PO SCH (07:19)
[2016-12-19] MEDS: POTASSIUM CHLORIDE 10 MEQ TABLET PO SCH (07:19)
[2016-12-19] MEDS: CYANOCOBALAMIN (VITAMIN B-12) 500 MCG TABLET PO SCH (08:28)
[2016-12-19] MEDS: FOLIC ACID 1 MG TABLET PO SCH (08:28)
[2016-12-19] MEDS: VIT A,C & E/LUTEIN/MINERALS TABLET PO SCH (08:28)
[2016-12-19] MEDS ORDERED: ENOXAPARIN 60 MG/0.6 ML SYRINGE SQ SCH (09:00)
--- NOTE | 2016-12-19 10:15 | Discharge Summary ---
Medical - DS: Prov Patient information: Note initiated : 12/19/16 at 10:13 am Service Date, if different from initiated Date: [] Patient: Billy Smallwood 81 y/o F admitted on 12/16/16 for SOB, Cough, Swelling To Legs/UTI. Chief Complaint: [] Date of admission: 12/16/16 17:00 Discharge date: 12/19/16 Primary care physician: Anand Rico Admitting clinician: Madelyn Waggoner Consults: 12/16/16 12:29 Consult to Physician [CONS] Stat Comment: Consulting Provider: Madelyn Waggoner Reason For Exam: Physician to Consult Discharging clinician: Madelyn Waggoner Medical - DS: Meds - Discharge Medications Prescriptions: RX: Cephalexin [Keflex] 500 mg PO BID #28 cap RX: Enoxaparin [Lovenox] 60 mg SQ BID #20 syringe Active and Home Medications: Home Medications cyanocobalamin (vit B-12) 1,000 mcg tablet 1,000 mcg PO QDAY #1 tab 04/09/15 [ Rx Confirmed 12/16/16 Last Taken 11/26/16] traMADol [Ultram] 50 mg PO BID PRN tab 10/03/15 [History Confirmed 12/16/16 Last Taken 11/12/16] simvastatin 10 mg tablet 10 mg PO QPM #90 tab 12/18/15 [Rx Confirmed 12/16/16 Last Taken 11/26/16] folic acid 1 mg tablet 3 mg PO QDAY #270 tab 05/12/16 [Rx Confirmed 12/16/16 Last Taken 11/26/16] Acetaminophen W/Codeine #3 [Tylenol #3] 1 tab PO Q4-6HP PRN #15 tab 11/26/16 [ Rx Confirmed 12/16/16 Last Taken Unknown] Albuterol Sulfate [Proventil Hfa] 6.7 gm IH Q4HP PRN #1 hfa.aer.ad 11/26/16 [Rx Confirmed 12/16/16 Last Taken Unknown] Methotrexate Sodium [Methotrexate] 25 mg IJ WEEKLY 11/26/16 [History Confirmed 12/16/16 Last Taken 11/25/16] Vit A,C & E/Lutein/Minerals [Ocuvite] 1 each PO DAILY 11/26/16 [History Confirmed 12/18/16 Last Taken 12/16/16] Warfarin [Coumadin] 2 mg PO DAILY 11/26/16 [History Confirmed 12/16/16 Last Taken 11/26/16] amlodipine 5 mg tablet 5 mg PO QDAY 12/03/16 [History Confirmed 12/16/16 Last Taken Unknown] carvedilol 12.5 mg tablet 12.5 mg PO BID 12/03/16 [History Confirmed 12/16/16 Last Taken Unknown] fluticasone 50 mcg/actuation nasal spray,suspension 100 mcg INTRANASAL QDAY PRN 12/03/16 [History Confirmed 12/16/16 Last Taken Unknown] losartan 100 mg tablet 50 mg PO QDAY #1 tab 12/03/16 [Rx Confirmed 12/16/16 Last Taken Unknown] prednisone 20 mg tablet 20 mg PO QDAY #5 tab 12/03/16 [Rx Confirmed 12/16/16 Last Taken Unknown] furosemide 20 mg tablet 20 mg PO QDAY #90 tab 12/04/16 [Rx Confirmed 12/16/16 Last Taken Unknown] potassium chloride ER 10 mEq capsule,extended release 10 meq PO QDAY #90 cap 02/08 [Rx Confirmed 12/16/16 Last Taken Unknown] INR machine 1 each .ROUTE DAILY 12/16/16 [History Confirmed 12/16/16 Last Taken Unknown] ALPRAZolam 0.5 mg PO HS PRN 12/17/16 [History Confirmed 12/17/16 Last Taken Unknown] Cefuroxime Axetil 500 mg PO BID 12/17/16 [History Confirmed 12/17/16 Last Taken Unknown] Dextromethorphan Polistirex 30 mg PO BID PRN 12/17/16 [History Confirmed Last Taken Unknown] Doxycycline Hyclate 100 mg PO QDAY 12/17/16 [History Confirmed 12/17/16 Last Taken Unknown] Flonase Allergy Relief 50 mcg INTRANASAL HS 12/17/16 [History Confirmed Last Taken Unknown] Melatonin 3 mg Tablet 3 mg PO HS PRN 12/17/16 [History Confirmed 12/17/16 Last Taken Unknown] Medical - DS: Hosp Hospital course: Ms. Smallwood is a 81 year old Female with multiple medical issues The patient presented to the hospital with complaints of shortness of breath, which nearly started since she was recently discharged from a rehab facility ( 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 The patient noted that over the period of 3 weeks she has been getting progressively short of breath. The patient notes that going up and down the stairs is getting difficult for her She admits to having increased frequency of urination, urinary incontinence and somewhat burning urine. The patient had been in the er x 3 over the last 2-3 weeks for evaluation but was sent home She also was having diffuse upper abdominal pain, sharp in nature, worse with eating food, some nausea, no vomiting. This time her workup showed that she has abnl ua and a worsening lft since august this year. USG of the Liver showed significant liver lesions, abscess vs malignancy The patient had CT abdomen done which showed multiple metastasis with primary in the renal Given she has UTI and has not been able to take good care of self ,she was admitted to the hospital for further management. UTI/ Sepsis: Treated with IV fluids, and IV cipro, patient has Ecoli in urine, sensitive to cipro and cephalosporins. Will discharge patient on keflex 500mg bid x 2 weeks. Shortness of breath: No hypoxia, chf noted on X ray, no PNA, patient was in [facility] off anticoagulation, and may have had a small PE, at this time the patient needs anticoagulation and so will not expose patient to additional testing for this. Plan to continue anticoagulation as outlined below Anticoagulation: patient is on Coumadin at home. She monitors her INR at home and follows I believe with [facility]. The patient at this time needs a biopsy of the Kidney which has been scheduled at [facility] (Pt wished this be done there as her Cancer doc will be there). Her INR today is 1.8 , she has been started on lovenox 60mg bid for bridging. She will stop her lovenox atleast 12 hrs before her procedure as per the recommendations of Dr Watts Radiologist at [facility] who would be performing the biopsy. The resumption of coumadin and lovenox will depend the recommendation fo radiologist. Stop lovenox inj after INR is > 2.0. Pt have used lovenox in the past and have own INR monitoring device. The patient has newly diagnosed likely renal cancer, which has metastasized to the liver and other organs. She has been evaluated by Dr Ivan in [facility]. The patient will follow up with them as outpatient on December 26 The patient had one brief episode of hypotension in the hospital. She responded to fluids. Her bp is stable > 24 hrs, I will hold all her diuretic and bp medications at discharge. She can slowly resume them as per the directions of her PCP. The rest of the stay in the hospital was uneventful, the patient will be discharged home with home health. Discharge diagnosis: UTI, Weakness, Renal Cell Cancer. - Time Spent with Patient Total time spent providing and/or coordinating discharge services: Greater than 30 minutes Medical - DS: Exam - Constitutional Vitals: Vital Signs Temp Pulse Pulse Pulse Resp BP BP 12/19/16 08:00 97.6 F 67 16 138/80 12/19/16 03:42 97.6 F 64 16 127/75 12/18/16 23:40 97.7 F 66 16 135/81 12/18/16 19:20 97.5 F 67 16 107/69 12/18/16 15:53 97.7 F 70 16 126/83 12/18/16 14:59 117/77 12/18/16 13:49 108/70 12/18/16 13:35 101/67 12/18/16 13:13 97.8 F 69 14 108/70 Pulse Ox 12/19/16 08:00 97 12/19/16 03:42 97 12/18/16 23:40 99 12/18/16 19:20 96 12/18/16 15:53 97 12/18/16 14:59 12/18/16 13:49 12/18/16 13:35 12/18/16 13:13 97 Intake and Output 12/18/16 12/19/16 12/19/16 21:59 05:59 13:59 Intake Total 2059 / 2060 1475 / 1475 120 / 120 Output Total 400 / 400 450 / 450 100 / 100 Balance 1660 / 1660 1025 / 1025 20 / 20 Intake: IV 1500 / 1500 1000 / 1000 Sodium Chloride 0.9% 1,000 ml @ 1000 / 1000 100 mls/hr IV .Q10H [facility] Rx#: [id number] Sodium Chloride 0.9% 500 ml @ 500 / 500 Wide Open IV BOLUS ONE Rx#: [id number] Oral 560 / 560 475 / 475 120 / 120 Output: Void Amount 400 / 400 450 / 450 100 / 100 Other: Meal Dinner Breakfast Percent of Meal Consumed 50% 75% Feeding Ability Independent # Bowel Movements 1 1 1 Weight 122 lb 8 oz Additional comments: Constitutional; Afebrile, cooperative, alert, not in distress. Eyes- No icterus, , No periorbital swelling Ears- Ext ear normal, hearing normal to conversation. Neck- Midline trachea, supple Respiratory system: Air Entry equal on both sides, No crackles or wheezing, no rhonchi. CVS- Rate rhythm regular, S1,S2 heard, no gallop, no rub. Abdomen- mild epigastric tenderness, hepatomegaly present. [employer]- AOOx3, moving all extremities, no gross focal deficit noted. Medical - DS: Data Procedures and tests throughout hospitalization: Chest X ray IMPRESSION: No evidence of pneumonia or congestive heart failure Liver USG Impression: Multiple complex cystic masses throughout the liver. This could be due to necrotic tumors. Infection with multiple liver abscess is another consideration. Upper abdominal CT with IV contrast is recommended. CT Abdomen and Pelvis IMPRESSION: Large tumor located centrally in the left kidney which extends into the renal pelvis and to Gerota's fascia. 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 Labs on day of discharge: Labs from last 24 hours 12/19/16 12/19/16 12/19/16 04:35 04:35 04:35 WBC RBC Hgb Hct MCV MCH MCHC RDW Plt Count MPV Gran % Lymph % (Auto) Crook % (Auto) Eos % (Auto) Baso % (Auto) Gran # Lymph # (Auto) Crook # (Auto) Eos # (Auto) Baso # (Auto) PT 20.5 H INR 1.7 H VBG Lactic Acid 2.0 Sodium 134 Potassium 4.0 Chloride 100 Carbon Dioxide 24 Anion Gap 10.0 BUN 18 Creatinine 0.9 GFR Calculation 61 Glucose 98 Uric Acid 8.0 Calcium 7.8 L Phosphorus 2.5 L Magnesium 2.0 Total Bilirubin 0.4 Direct Bilirubin < 0.2 GGT 647 H AST 118 H ALT 57 H Alkaline Phosphatase 512 H Lactate Dehydrogenase 601 H Total Protein 4.3 L Albumin 2.2 L Globulin 2.1 L Albumin/Globulin Ratio 1.0 Triglycerides 115 Procalcitonin 12/19/16 12/18/16 12/18/16 04:35 18:02 13:40 WBC 11.4 H RBC 3.00 L Hgb 9.4 L Hct 28.1 L MCV 93.6 MCH 31.3 MCHC 33.4 RDW 14.7 H Plt Count 211 MPV 8.6 Gran % 86.9 H Lymph % (Auto) 7.4 L Crook % (Auto) 4.8 Eos % (Auto) 0.8 Baso % (Auto) 0.1 Gran # 9.9 H Lymph # (Auto) 0.8 L Crook # (Auto) 0.5 Eos # (Auto) 0.1 Baso # (Auto) 0 PT INR VBG Lactic Acid 3.3 H 2.6 H Sodium Potassium Chloride Carbon Dioxide Anion Gap BUN Creatinine GFR Calculation Glucose Uric Acid Calcium Phosphorus Magnesium Total Bilirubin Direct Bilirubin GGT AST ALT Alkaline Phosphatase Lactate Dehydrogenase Total Protein Albumin Globulin Albumin/Globulin Ratio Triglycerides Procalcitonin 12/18/16 12/18/16 12/18/16 13:40 13:40 13:40 WBC RBC Hgb Hct MCV MCH MCHC RDW Plt Count MPV Gran % Lymph % (Auto) Crook % (Auto) Eos % (Auto) Baso % (Auto) Gran # Lymph # (Auto) Crook # (Auto) Eos # (Auto) Baso # (Auto) PT 30.2 H INR 2.8 H VBG Lactic Acid Sodium 130 L Potassium 4.1 Chloride 93 L Carbon Dioxide 22 Anion Gap 15.0 BUN 23 Creatinine 1.3 H GFR Calculation 39 Glucose 201 H Uric Acid 8.8 H Calcium 8.1 L Phosphorus 2.8 Magnesium 1.5 L Total Bilirubin 0.4 Direct Bilirubin < 0.2 GGT 723 H AST 135 H ALT 65 H Alkaline Phosphatase 564 H Lactate Dehydrogenase 603 H Total Protein 4.6 L Albumin 2.1 L Globulin 2.5 Albumin/Globulin Ratio 0.8 L Triglycerides 151 H Procalcitonin 0.61 12/18/16 13:40 WBC 10.4 RBC 3.15 L Hgb 9.9 L Hct 29.6 L MCV 93.9 MCH 31.3 MCHC 33.3 RDW 14.4 Plt Count 202 MPV 8.3 Gran % 90.8 H Lymph % (Auto) 4.8 L Crook % (Auto) 3.7 Eos % (Auto) 0.7 Baso % (Auto) 0 Gran # 9.4 H Lymph # (Auto) 0.5 L Crook # (Auto) 0.4 Eos # (Auto) 0.1 Baso # (Auto) 0 PT INR VBG Lactic Acid Sodium Potassium Chloride Carbon Dioxide Anion Gap BUN Creatinine GFR Calculation Glucose Uric Acid Calcium Phosphorus Magnesium Total Bilirubin Direct Bilirubin GGT AST ALT Alkaline Phosphatase Lactate Dehydrogenase Total Protein Albumin Globulin Albumin/Globulin Ratio Triglycerides Procalcitonin Medical - DS: A/P - Patient/Caregiver Discharge Instructions Activity: as per physical therapy, increase activity as tolerated Diet: Regular Diet Additional Instructions: You are scheduled for a Kidney biopsy at [facility]. You will need to be at out patient registration at 7:00 am. You can not eat or drink anything after midnight prior to test day. You may take essential medications (blood pressure, heart, seizure and pain medication) with a small sip of water early the morning of test day. Do not take any blood thinners until instructed after procedure. Hold or do not take lovenox (blood thinner injection) At least 12 hours before the scheduled procedure. Your radiologist will tell you when it is safe to start Coumadin and Lovenox injections. Likely the same evening or the next day Check INR levels on a daily basis Stop taking the lovenox injections once your INR is more than 2.0, Coumadin management thereafter will be as per your Coumadin clinic. Follow up with Oncology Dr Ivan as scheduled, December 26 Please follow up with your PCP on 2 weeks Stop all blood pressure medications. (losartan, amlodipine, coreg and the water pill lasix). Monitor the blood pressure on a daily basis, If the blood pressure is more than (systoilc) 150 on the upper number, then start taking amlodipine 5mg once daily. Your PCP should be able to take over management of same at the next visit and resume meds as appropriate. You also had a urinary tract infection. I have started you on a antibiotic Cephalexin 500mg Twice daily for 2 weeks. Prescriptions: RX: Cephalexin [Keflex] 500 mg PO BID #28 cap RX: Enoxaparin [Lovenox] 60 mg SQ BID #20 syringe Other Amb Orders: CT biopsy renal LT Location: Determined By Patient - Follow up Plan Follow up with: Anand Rico MD [Primary Care Provider] - Tatiana Ivan [Physician] - Disposition: Home Health Service Prognosis: Fair Rehab Potential: Fair I certify that the patient requires SNF services: No Overall status at discharge: patient is progressing back to baseline Medical - DS: Qual - VTE Deep Vein Thrombosis/Pulmonary Embolism Present on Admission: No
[2016-12-19] MEDS: traMADol 50 MG TABLET PO PRN (13:00)
[2016-12-19] MEDS ORDERED: ENOXAPARIN 40 MG/0.4 ML SYRINGE SQ ONE (13:28)
== END 2016-12-19 14:30 | disposition home health service (06) ==
LOC: MEDSUR 08:05 → ED 08:05 → MEDSUR 17:10
PROVIDERS: ADMIT Internal Medicine; ATTEND Internal Medicine